=== PATIENT | female | born 1975 | race Caucasian/White ===

== ENCOUNTER → 2022-07-24 | Outpatient (CLI) | payer BC ==
[2022-07-25 02:06] LABS: Protein, Total 6.9 d/dL (6.2-8.2)
[2022-07-25 02:32] LABS: Rheumatoid Factor, Qnt <15 IU/mL (0-15); T4, Free (Free Thyroxine) 1.56 ng/dL (0.80-1.80); Uric Acid 4.6 mg/dL (2.9-7.7)
[2022-07-25 02:43] LABS: ALT 17 U/L (8-44); AST 42 U/L (13-35); Albumin 4.4 d/dL (3.8-4.9); Albumin/Globulin Ratio 1.63 Ratio (1.60-3.17); Alkaline Phosphatase 90 U/L (41-126); BUN/Creat Ratio 11.82 Ratio (12.00-20.00); Calcium 9.8 mg/dL (8.7-10.3); Carbon Dioxide 24.9 mmol/L (21.6-31.8); Chloride 106 mmol/L (96-109); Creatine Kinase 97 U/L (26-186); Globulin 2.7 d/dL (1.6-3.3); Glucose 111 mg/dL (70-110); Potassium 4.8 mmol/L (3.5-5.5); Sodium 142 mmol/L (135-145); Total Bilirubin <0.2 mg/dL (0.3-1.2); Total Protein 7.1 d/dL (6.2-8.2)
[2022-07-25 03:38] LABS: Hepatitis B Surface Antigen Nonreactive
[2022-07-25 04:53] LABS: Appearance,Urine Clear (Clear); Bacteria,Urine Trace; Bilirubin,Urine Negative (Negative); Blood,Urine Trace (Negative); Color,Urine Yellow (Yellow); Ketones,Urine Negative (Negative); Nitrite,Urine Negative (Negative); Specific Gravity,Urine 1.021 (1.001-1.030); Urobilinogen,Urine 0.2
[2022-07-25 05:25] LABS: Anti-DNA, DS unit <1.0 IU/mL; Anti-Smith Ab Interp Negative (Negative); Cardiolipin Ab IgG Interp Negative (Negative); Cardiolipin Ab IgM Interp Negative (Negative); Cardiolipin IgM Antibody 2.5 U/mL; Centromere Antibody <0.2 AI; Centromere Antibody Interp Negative (Negative); DNA Double-Stranded Negative (Negative); Scleroderma SC-70 Ab 0.4 AI
[2022-07-25 07:53] LABS: Cyclic Citrull Pep IgG Unit <1.5 U/mL (<=3.9); Cyclic Citrullinated Pep IgG Negative
[2022-07-25 13:15] LABS: Angiotensin-1 Converting Enz. 34 U/L (8-52)
[2022-07-25 14:40] LABS: Free Kappa Lt Chain Qnt, Serum 1.71 mg/dL (0.33-1.94); Free Lambda Lt Chain Qnt, Seru 1.02 mg/dL (0.57-2.63)
[2022-07-25 14:48] LABS: C-ANCA <1:20 Titer (<1:20)
== END | disposition home or self-care (01) ==
LOC: LABWHC1 15:22
PROVIDERS: ATTEND Internal Medicine Rheumatology
DX: Z11.59 Encounter for screening for other viral diseases (principal); M13.0 Polyarthritis, unspecified; E55.9 Vitamin D deficiency, unspecified; E03.9 Hypothyroidism, unspecified; R76.8 Other specified abnormal immunological findings in serum
CPT/HCPCS: 36415; 80053; 81001; 82164; 82306; 82550; 83520; 83883; 84165; 84439; 84443; 84550; 86038; 86140; 86147; 86160; 86162; 86200; 86225; 86235; 86255; 86334; 86431; 87340

== ENCOUNTER → 2022-07-25 | Outpatient (CLI) | payer BC ==
[2022-07-25 23:06] LABS: Basophils # (A) 0.03 X 10*3/uL (0.00-0.10); Basophils % (A) 0.5 %; Eosinophils # (A) 0.05 X 10*3/uL (0.04-0.35); Eosinophils % (A) 0.8 %; HCT 38.9 % (37.2-46.3); HGB 12.8 d/dL (12.0-15.0); Lymphocytes # (A) 1.69 X 10*3/uL (0.90-5.00); Lymphocytes % (A) 27.1 %; MCHC 32.9 d/dL (32.0-37.0); MCV 94.2 FL (80.0-97.0); Mean Platelet Volume 10.7 FL (9.5-12.2); Monocytes % (A) 6.4 %; NRBC Per 100 WBC 0 X 10*3/uL (0.00-0.01); Neutrophils # (A) 4.05 X 10*3/uL (1.80-7.70); Neutrophils % (A) 64.9 %; Platelet Count 329 X 10*3/uL (140-440); RBC 4.13 X 10*6/uL (4.10-5.20); RDW 12.8 % (11.5-14.5); WBC 6.24 X 10*3/uL (4.50-10.00)
[2022-07-26 00:01] LABS: Erythrocyte Sedimentation Rate 25 mm/Hr (0-20)
== END | disposition home or self-care (01) ==
LOC: LABWHC1 16:14
PROVIDERS: ATTEND Internal Medicine Rheumatology
DX: M13.0 Polyarthritis, unspecified (principal); R76.8 Other specified abnormal immunological findings in serum
CPT/HCPCS: 36415; 85025; 85613; 85652; 85730